=== PATIENT | female | born 1965 | race Caucasian/White ===

== ENCOUNTER 2019-01-09 11:56 | Day surgery (SDC) | payer BC ==
[2019-01-09] MEDS ORDERED: PROPOFOL 10 MG/ML VIAL IV ONE (11:57)
[2019-01-09] MEDS ORDERED: LIDOCAINE 2% MDV (20MG/ML) 20ML VIAL IV ONE (11:57)
--- NOTE | 2019-01-10 12:31 | Operative Note ---
DATE OF SURGERY: 01/09/2019 OPERATION: COLONOSCOPY TO THE CECUM. INDICATION: Strong family history of colon polyps in both parents. There is also a maternal family history of colon cancer in other relatives. She presents today for high risk screening after 5 years from her last examination. Anesthesia: Intravenous sedation was administered by the Department of Anesthesiology and included Diprivan titrated to effect. PROCEDURE: Following informed consent from this alert individual, including a discussion of the risks and benefits of the procedure and opportunity for the patient to ask questions, the patient was in the left lateral decubitus position. Digital rectal examination was performed. No abnormalities were noted. Following this, the Olympus PCF 180 video colonoscope was inserted in the rectum without resistance. The rectal mucosa had a normal appearance with normal folds and distensibility. The colonoscope was advanced up through the bowel to the level of the cecum without much difficulty. Throughout the bowel the mucosa appeared normal, folds were normal. The bowel was filled with distensible. The cecum was defined by noting the appendiceal orifice and the ileocecal valve. From the base of the cecum, the colonoscope was then slowly withdrawn after retroflexion was accomplished. No abnormalities were appreciated. The colon preparation overall was good. From the base of the cecum, the colonoscope was then withdrawn. No changes were noted endoscopically throughout. Retroflexion in the rectum was endoscopically unremarkable. The instrument was removed. The patient tolerated the procedure well and was returned to the recovery area in stable condition. IMPRESSION: Normal colonoscopy to the cecum. RECOMMENDATIONS: The patient was advised to have a screening colonoscopy again in 5 years' time, or sooner if problems arise. Followup will be with Dr. Shelby Scales. [facility]
== END 2019-01-09 14:38 | disposition home or self-care (01) ==
LOC: HOP 11:56
PROVIDERS: ATTEND Internal Medicine Gastroenterology
DX: Z12.11 Encounter for screening for malignant neoplasm of colon (principal); Z80.0 Family history of malignant neoplasm of digestive organs; Z83.71 Family history of colonic polyps; E03.9 Hypothyroidism, unspecified
CPT/HCPCS: 00812; G0105